=== PATIENT | male | born 1950 | race Caucasian/White ===

== ENCOUNTER 2019-01-06 14:10 | Emergency (ER) | payer MEDICARE, BC ==
[~2019-01-06] VITALS: Ht 180.3 cm; Wt 87.2 kg
[2019-01-06 14:19] VITALS: BP 99/62
== END 2019-01-06 15:14 | disposition home or self-care (01) ==
LOC: ED 15:00
DX: H57.89 Other specified disorders of eye and adnexa (principal); J44.9 Chronic obstructive pulmonary disease, unspecified; Z87.891 Personal history of nicotine dependence
CPT/HCPCS: 99283